=== PATIENT | male | born 1945 | race Caucasian/White ===

== ENCOUNTER 2022-04-20 10:34 | Day surgery (SDC) | payer MEDICARE, BC ==
[2022-04-15 09:23] LABS: BASOPHILS % (AUTO) 0.6 % (0-1); EOSINOPHILS # (AUTO) 0.2 X10'3 (0-0.9); HEMATOCRIT 44.2 % (42.0-52.0); HEMOGLOBIN 15.1 g/dl (14.0-17.9); MEAN CORPUSCULAR HEMOGLOBIN 33.2 PG (27.0-31.0); MEAN CORPUSCULAR HGB CONC 34.2 g/dL (33.0-36.5); MEAN PLATELET VOLUME 8.2 FL (7.4-10.4); MONOCYTES # (AUTO) 0.7 X10'3 (0-0.9); NEUTROPHILS # (AUTO) 3.3 X10'3 (1.8-7.7); NEUTROPHILS % (AUTO) 63.4 % (42-75); PLATELET COUNT 246 X10'3 (140-440); RED BLOOD COUNT 4.56 X10'6 (4.70-6.10); RED CELL DISTRIBUTION WIDTH 14.1 % (11.5-14.5); WHITE BLOOD COUNT 5.2 X10'3 (4.5-11.0)
[2022-04-15 09:26] LABS: ALBUMIN 3.5 G/DL (3.4-5.0); ANION GAP 10 (8-16); BLOOD UREA NITROGEN 28 MG/DL (7-18); BUN/CREATININE RATIO 14.5 (5.4-32.0); CALCIUM 9.3 MG/DL (8.5-10.1); CHLORIDE 98 MMOL/L (99-107); CREATININE 1.93 MG/DL (0.60-1.10); GLUCOSE 103 MG/DL (70-104); SODIUM 140 MMOL/L (135-145); TOTAL CARBON DIOXIDE 31.8 MMOL/L (24-32); eGFR 34 ML/MIN
[2022-04-15 09:30] LABS: APTT 29 SECONDS (22-32)
[2022-04-20] VITALS (11 sets, daily range): BP systolic 105–154; BP diastolic 62–92
[~2022-04-20] VITALS: Ht 170.2 cm; Wt 109.3 kg
[2022-04-20] MEDS ORDERED: METO50TA17 PO (11:08)
[2022-04-20] MEDS ORDERED: vitamin d3 PO (11:08)
[2022-04-20] MEDS ORDERED: APIX5TAB3 PO (11:08)
[2022-04-20] MEDS ORDERED: OMEG-79 PO (11:08)
[2022-04-20] MEDS ORDERED: EMPA10TA PO (11:08)
[2022-04-20] MEDS ORDERED: AMIO200T61 PO (11:08)
[2022-04-20] MEDS ORDERED: XAL0.005OS OP (11:08)
[2022-04-20] MEDS ORDERED: METF-438 PO (11:08)
[2022-04-20] MEDS ORDERED: vitamin b1 PO (11:08)
[2022-04-20] MEDS ORDERED: POTA20PA40 PO (11:08)
[2022-04-20] MEDS ORDERED: elderberry PO (11:08)
[2022-04-20] MEDS ORDERED: SACU1TAB7 PO (11:08)
[2022-04-20] MEDS ORDERED: FURO20TA4 PO (11:08)
[2022-04-20] MEDS ORDERED: DORZ10DR18 EACHEYE (11:08)
[2022-04-20] MEDS ORDERED: normal saline 1000ml 1,000 ML IV SCH (11:10)
[2022-04-20] MEDS ORDERED: MIDAZolam 1mg/ml 10ml vial IV ONE (11:10)
[2022-04-20] MEDS ORDERED: fentaNYL/PF 50MCG/1 ML 2ML syringe IV ONE (11:10)
[2022-04-20] MEDS ORDERED: potassium Cl 20 mEq SR tablet PO STA (12:22)
== END 2022-04-20 14:25 | disposition home or self-care (01) ==
LOC: SSTAY O 10:34
PROVIDERS: ATTEND Student in an Organized Health Care Education/Training Program
DX: I48.0 Paroxysmal atrial fibrillation (principal); Z79.899 Other long term (current) drug therapy; G47.33 Obstructive sleep apnea (adult) (pediatric); I11.0 Hypertensive heart disease with heart failure; I50.9 Heart failure, unspecified; E66.01 Morbid (severe) obesity due to excess calories; Z98.890 Other specified postprocedural states; R00.1 Bradycardia, unspecified
CPT/HCPCS: 36415; 80048; 82948; 84132; 85025; 85610; 85730; 92960; 93005; J2250; J3010; J7030; A4620

== ENCOUNTER 2023-09-27 12:38 | Day surgery (SDC) | payer OTHER ==
[~2023-09-27] VITALS: Ht 167.6 cm; Wt 124.2 kg
[2023-09-27] VITALS (10 sets, daily range): BP systolic 122–152; BP diastolic 78–106; PULSE 50–77; RESP 16; TEMP 98.2; O2SAT 95–98
[~2023-09-27 12:38] MED LIST: APIX5TAB3 PO; EMPA10TA PO; FURO20TA4 PO; METF-438 PO; METO-539 PO; MULT-1085 PO; OMEG-79 PO; SACU1TAB7 PO; SPIR25TA5 PO; XAL0.005OS OP; elderberry PO; lidocaine patch; vitamin b1 PO; vitamin d3 PO
[2023-09-27] MEDS ORDERED: normal saline 1000ml 1,000 ML IV SCH (13:10)
[2023-09-27] MEDS ORDERED: AMIO200T27 PO (13:11)
[2023-09-27] MEDS ORDERED: EZET10TA6 PO (13:11)
[2023-09-27 13:36] LABS: BASOPHILS % (AUTO) 0.5 % (0-1); EOSINOPHILS # (AUTO) 0.2 X10'3 (0-0.9); HEMOGLOBIN 15.1 g/dl (14.0-17.9); LYMPHOCYTES # (AUTO) 0.9 X10'3 (1.1-4.8); LYMPHOCYTES % (AUTO) 16.5 % (21-51); MEAN CORPUSCULAR HEMOGLOBIN 32.8 PG (27.0-31.0); MEAN CORPUSCULAR HGB CONC 33.5 g/dL (33.0-36.5); MEAN CORPUSCULAR VOLUME 97.9 FL (78-98); MEAN PLATELET VOLUME 7.6 FL (7.4-10.4); MONOCYTES # (AUTO) 0.6 X10'3 (0-0.9); MONOCYTES % (AUTO) 11.8 % (2-12); NEUTROPHILS # (AUTO) 3.6 X10'3 (1.8-7.7); NEUTROPHILS % (AUTO) 68.2 % (42-75); PLATELET COUNT 215 X10'3 (140-440); RED BLOOD COUNT 4.59 X10'6 (4.70-6.10); RED CELL DISTRIBUTION WIDTH 14.3 % (11.5-14.5); WHITE BLOOD COUNT 5.3 X10'3 (4.5-11.0)
[2023-09-27 13:40] LABS: ALBUMIN 3.8 G/DL (3.4-5.0); ANION GAP 7 (8-16); BLOOD UREA NITROGEN 16 MG/DL (7-18); CALCIUM 8.5 MG/DL (8.5-10.1); CHLORIDE 105 MMOL/L (99-107); CREATININE 1.46 MG/DL (0.60-1.10); GLUCOSE 90 MG/DL (70-104); POTASSIUM 3.9 MMOL/L (3.5-5.1); SODIUM 138 MMOL/L (135-145); TOTAL CARBON DIOXIDE 26.4 MMOL/L (24-32); eCRCL 39 ML/MIN; eGFR 47 ML/MIN
[2023-09-27 13:44] LABS: PROTHROMBIN TIME 10.7 SECONDS (9.0-12.0)
[2023-09-27 13:46] LABS: CHOL/HDL RATIO 3.1 (0.00-4.99); CHOLESTEROL 186 MG/DL (0-200); HDL CHOLESTEROL 60 MG/DL (35-60); LDL CHOLESTEROL 100 MG/DL (50-100); TRIGLYCERIDES 127 MG/DL (20-135)
[2023-09-27] MEDS: MIDAZolam 1mg/ml 10ml vial IV ONE (15:42)
[2023-09-27] MEDS: fentaNYL/PF 50MCG/1 ML 2ML syringe IV ONE (15:42)
== END 2023-09-27 16:40 | disposition home or self-care (01) ==
LOC: SSTAY O 12:38
PROVIDERS: ATTEND Student in an Organized Health Care Education/Training Program
DX: I48.91 Unspecified atrial fibrillation (principal); I11.0 Hypertensive heart disease with heart failure; I50.30 Unspecified diastolic (congestive) heart failure; E78.5 Hyperlipidemia, unspecified; I34.0 Nonrheumatic mitral (valve) insufficiency; E11.9 Type 2 diabetes mellitus without complications; G47.33 Obstructive sleep apnea (adult) (pediatric); E66.01 Morbid (severe) obesity due to excess calories; Z88.8 Allergy status to other drugs, medicaments and biological substances; Z79.84 Long term (current) use of oral hypoglycemic drugs; Z79.899 Other long term (current) drug therapy; Z79.01 Long term (current) use of anticoagulants; Z68.41 Body mass index [BMI] 40.0-44.9, adult
CPT/HCPCS: 36415; 80048; 80061; 85025; 85610; 92960; 93005; J2250; J3010; J7030; A4620

== ENCOUNTER 2025-03-05 08:50 | Day surgery (SDC) | payer MEDICARE, BC ==
[2025-03-01 08:40] LABS: MEAN PLATELET VOLUME 7.7 FL (7.4-10.4); RED CELL DISTRIBUTION WIDTH 14.1 % (11.5-14.5)
[2025-03-01 08:55] LABS: APTT 29 SECONDS (22-32); INR 1.1 INR
[2025-03-01 08:59] LABS: CHOL/HDL RATIO 2.6 (0.00-4.99); CREATININE 1.25 MG/DL (0.60-1.10); LDL CHOLESTEROL 100 MG/DL (50-100); TOTAL CARBON DIOXIDE 25.7 MMOL/L (24-32); eGFR 56 ML/MIN
[~2025-03-05] VITALS: Ht 170.2 cm; Wt 100.5 kg
[~2025-03-05 08:50] MED LIST changes: +AMIO200T27 PO; +CHOL500050 PO; +EZET10TA6 PO; -FURO20TA4 PO; -METO-539 PO; -MULT-1085 PO; -SACU1TAB7 PO; +TIMO10TA PO; +Vitamin B12 PO; +Vitamin D3 PO; -elderberry PO; -lidocaine patch; -vitamin b1 PO; -vitamin d3 PO
[2025-03-05] MEDS ORDERED: fentaNYL/PF 50MCG/1 ML 2ML syringe IV ONE (09:25)
[2025-03-05] MEDS ORDERED: MIDAZolam 1mg/ml 10ml vial IV ONE (09:25)
[2025-03-05] MEDS ORDERED: normal saline 1000ml 1,000 ML IV SCH (09:25)
[2025-03-05 09:40] VITALS: BP 108/80; PULSE 62; RESP 14; TEMP 98; O2SAT 95
[2025-03-05 11:09] VITALS: RESP 15; O2SAT 96
[2025-03-05] MEDS ORDERED: atropine 0.1mg/ml 10ml syringe ONE (12:10)
[2025-03-05] MEDS ORDERED: midazolam 1 mg/ML 2ml injection ONE (12:10)
[2025-03-05] MEDS ORDERED: amiodarone 50MG/ML inj IV ONE (12:10)
[2025-03-05] MEDS ORDERED: fentaNYL/PF 50MCG/1 ML 2ML syringe ONE (12:10)
--- NOTE | 2025-03-05 12:59 | ELECTROCARDIOGRAPH REPORT ---
[facility] Test Date: 2025-03-05 Test Time: 12:57:58 Pat Name: KALLIE PALACIOS Department: [facility] O Patient ID: [id number] Room: Gender: M Data Management Associate: : 1945 Requested By: TISHA SHAY Order Number: [id number] Reading MD: Dr. LEANNA Gonzalez Measurements Intervals Peterson Rate: 46 P: 27 GA: 285 QRS: 40 QRSD: 101 T: 112 QT: 487 QTc: 426 Interpretive Statements Sinus bradycardia Multiform ventricular premature complexes Prolonged GA interval Low voltage, precordial leads Nonspecific T abnormalities, lateral leads Electronically Signed On 03-06-2025 19:16:[address] LEANNA Gonzalez Please click the below link to view image of tracing.
[2025-03-05 13:30] VITALS: BP 167/74; PULSE 84; RESP 15; O2SAT 96
[2025-03-05 13:45] VITALS: BP 149/73; PULSE 75; RESP 14; O2SAT 97
[2025-03-05 14:00] VITALS: BP 139/72; PULSE 68; RESP 20; O2SAT 96
[2025-03-05 15:15] VITALS: BP 167/74; PULSE 84; RESP 14; O2SAT 97
--- NOTE | 2025-03-09 20:45 | CARDIOLOGY REPORT ---
DATE OF SERVICE: 03/05/2025 DICTATING PHYSICIAN: Anusha Urrutia MD CARDIOVERSION DATE OF STUDY: 03/05/2025 NAME OF STUDY: Electrical cardioversion. PROCEDURE: The patient was brought to cardiac short stay where he was prepped in the usual manner. After gradual increments of versed and fentanyl, and conscious sedation was obtained, the patient was cardioverted. The patient remained clinically and hemodynamically stable throughout the procedure. IMPRESSION: Successful electrical cardioversion to normal sinus rhythm without complication. Anusha Urrutia MD TID: [id number] RECEIPT: [id number] LUKE/CHANDANA
== END 2025-03-05 14:15 | disposition home or self-care (01) ==
LOC: SSTAY O 08:50
PROVIDERS: ATTEND Student in an Organized Health Care Education/Training Program
DX: I48.91 Unspecified atrial fibrillation (principal); I49.3 Ventricular premature depolarization; R94.31 Abnormal electrocardiogram [ECG] [EKG]; I13.0 Hypertensive heart and chronic kidney disease with heart failure and stage 1 through stage 4 chronic kidney disease, or unspecified chronic kidney disease; E11.22 Type 2 diabetes mellitus with diabetic chronic kidney disease; N18.9 Chronic kidney disease, unspecified; I50.30 Unspecified diastolic (congestive) heart failure; E78.00 Pure hypercholesterolemia, unspecified; E66.01 Morbid (severe) obesity due to excess calories; G47.33 Obstructive sleep apnea (adult) (pediatric); Z79.01 Long term (current) use of anticoagulants; Z79.84 Long term (current) use of oral hypoglycemic drugs; Z79.899 Other long term (current) drug therapy; Z88.8 Allergy status to other drugs, medicaments and biological substances
CPT/HCPCS: 36415; 80048; 80061; 83695; 85025; 85610; 85730; 92960; 93005; J2250; J3010; J7030; Z7610; J0282; J0461